=== PATIENT | male | born 1945 | race Caucasian/White ===

== ENCOUNTER → 2023-11-01 | Outpatient (CLI) | payer OTHER ==
--- NOTE | 2023-11-01 17:56 | FL ---
EXAMINATION TYPE: FL barium swallow DATE OF EXAM: 11/01/2023 CLINICAL INDICATION: 78-year-old male R10.13, epigastric pain complaining of foods and liquids gettin g stuck for years, heartburn. COMPARISON: None Total Fluoroscopy Time: 3 minutes 10 seconds 803.23 mGycm2 DAP 72 images obtained. FINDINGS: The exam is very limited due to patient's shortness of breath. Patient took intermittent small swallo ws. Hypopharyngeal anatomy appears maintained. There is irregularity of the distal esophagus just above the GE junction. No definite fixed narrowing is identified here. Valsalva and positional maneuvers when the patient is prone/supine results in moderate gastroesophage al reflux. The proximal and mid thoracic esophagus shows normal course and caliber. Overall normal motility. IMPRESSION: 1. Very limited assessment due to patient's shortness of breath. The patient took intermittent small swallows through the exam limiting the degree of esophageal distention. 2. Distal esophageal irregularity just above the GE junction favored to represent a small hiatal cristi ia rather than mucosal irregularity/lesion. No fabio stricture is identified here. Short interval fol low-up recommended if the patient is unable to have endoscopy. 3. Moderate gastroesophageal reflux.
== END | disposition home or self-care (01) ==
LOC: RADUSWWP 08:40
PROVIDERS: ATTEND Internal Medicine Gastroenterology
DX: K21.9 Gastro-esophageal reflux disease without esophagitis (principal); R06.02 Shortness of breath
CPT/HCPCS: 74220

== ENCOUNTER → 2023-11-04 | Outpatient (CLI) | payer OTHER ==
--- NOTE | 2023-11-04 15:20 | FL ---
EXAMINATION TYPE: FL UGI air w small bowel DATE OF EXAM: 11/04/2023 12:00 PM CLINICAL INDICATION:Male, 78 years old with history of R10.13 EPIGASTRIC PAIN; COMPARISON: 11/01/2023 TECHNIQUE: The procedure was explained and patient history elicited. All patient questions were ans wered prior to start of procedure. A meeting facilitator radiograph of the abdomen was also reviewed. Multiple flu oroscopic spot images of the esophagus, stomach and duodenum were obtained following ingestion of liq uid barium and EZ-gas crystals. After the completion of the upper gastrointestinal examination, a de tailed small bowel examination was performed. The patient was asked to ingest additional liquid faby um and incremental frontal abdominal radiographs were then taken until contrast was visualized in the cecum. Fluoroscopic time: 2 minutes 15 seconds Fluoroscopic images:0 Radiographs taken: 233 DAP: Not reported [id number] FINDINGS: The esophagus appears unremarkable without evidence of focal stricture, ulceration or abnormal outpou sabas. There is tertiary contractions throughout the esophagus. Small hiatal hernia. No evidence of g astroesophageal reflux was seen when the patient was instructed to bear down. The stomach and duoden um demonstrate a normal course and contour. There is no evidence of focal gastric or duodenal ulcera tion, stricture, or abnormal outpouching. Small bowel mucosal folds are felt to be within normal limi ts. Detailed small bowel examination: Contrast is seen extending from the duodenojejunal junction into the cecum after 3 hours, which is li shayan due to patient's immobility. The small bowel follows normal distribution and contour without an y evidence of extraluminal or intraluminal irregularity. There is no displacement of bowel loops or extraluminal extravasation of contrast material. Scattered colonic diverticula are seen throughout th e colon with inspissated barium. IMPRESSION: 1. Esophageal dysmotility. 2. Small hiatal hernia. 3. Normal detailed small bowel examination.
== END | disposition home or self-care (01) ==
LOC: RADFLMAIN 07:28
PROVIDERS: ATTEND Internal Medicine Gastroenterology
DX: K44.9 Diaphragmatic hernia without obstruction or gangrene (principal); K22.4 Dyskinesia of esophagus
CPT/HCPCS: 74240; 74248